=== PATIENT | male | born 1975 | race Caucasian/White ===

== ENCOUNTER 2016-11-14 02:38 | Emergency (ER) | payer OTHER ==
[~2016-11-14] VITALS: Ht 180.3 cm; Wt 106.6 kg
--- NOTE | 2016-11-14 02:38 | NUR ---
Patient BIB [facility] at this time.
[2016-11-14 02:43] VITALS: BP 106/71
--- NOTE | 2016-11-14 03:15 | NUR ---
Dr. Kimball evaluating patient.
[2016-11-14 03:45] VITALS: BP 111/62
--- NOTE | 2016-11-14 03:45 | NUR ---
Patient discharged with v/s stable. Written and verbal after care instructions given and explained. Patient verbalized understanding. Ambulatory with steady gait. All questions addressed prior to discharge. Advised to follow up with PMD.
== END 2016-11-14 03:45 ==
LOC: MED 02:38
DX: Z02.89 Encounter for other administrative examinations (principal); Z04.1 Encounter for examination and observation following transport accident; F10.129 Alcohol abuse with intoxication, unspecified; Y90.9 Presence of alcohol in blood, level not specified